=== PATIENT | male | born 1980 | race Two or more races ===

== ENCOUNTER 2020-10-31 19:32 | Emergency (ER) | payer SELFPAY ==
[~2020-10-31] VITALS: Ht 170.2 cm; Wt 103.4 kg
[2020-10-31] MEDS ORDERED: ONDANSETRON HCL 4 MG/2 ML VIAL IV ONE ×2 (19:45→20:30)
[2020-10-31] MEDS ORDERED: HYDROmorphone HCL 2 MG/ML VL IV ONE (19:45)
[2020-10-31] MEDS ORDERED: LIDOCAINE 2%HCL (LOCAL ANESTH.) INJ 10ml MDV IJ ONE (20:00)
[2020-10-31] MEDS ORDERED: BUPIVACAINE 0.5% P/F INJ 10 ML VIAL ONE (20:03)
[2020-10-31] MEDS ORDERED: LIDOCAINE 2% (LOCAL ANESTH.) PF 5ml SDV ONE (20:06)
[2020-10-31 20:20] VITALS: BP 121/81
[2020-10-31] MEDS ORDERED: TETANUS-DIPTH-ACEL PERTUSSIS 0.5ML SYR Tdap IM ONE (21:45)
[2020-10-31] MEDS ORDERED: ceFAZolin 1GM/50ML 100 ML IV ONE (21:45)
== END 2020-10-31 22:41 | disposition home or self-care (01) ==
LOC: ER 19:32 → EDBD 19:32 → ER 22:41
DX: S62.521A Displaced fracture of distal phalanx of right thumb, initial encounter for closed fracture (principal); X58.XXXA Exposure to other specified factors, initial encounter; Y93.89 Activity, other specified; Y92.89 Other specified places as the place of occurrence of the external cause; Y99.8 Other external cause status
CPT/HCPCS: 11730; 73140; 90471; 90715; 96365; 96375; 99284; J0690; J1170; J2001; J2405; J3490

== ENCOUNTER 2024-06-07 21:37 | Emergency (ER) | payer MEDICAID ==
[~2024-06-07] VITALS: Ht 170.2 cm; Wt 94.2 kg
--- NOTE | 2024-06-07 21:58 | ED.PDOC ---
Foreign Body HPI Comments 43-year-old male who came to ER for foreign body. Patient is working earlier, when a wooden splinter got lodged between the 1st and 2nd digit of the right hand accidentally. Minimal bleeding noted. Chief Complaint: Foreign Body Time Seen by MD: 21:57 Primary Care Provider: NONE History of Present Illness: Nurses Notes Allergies: Coded Allergies: NO KNOWN ALLERGIES (Unverified , 10/31/20) Information Source: Patient Mode of Arrival: Ambulatory Timing: Hours Duration: Since onset Severity: Mild Ability to handle secretions: Normal Prehospital treatment: None Location: Right (Right hand in the webspace between 1st and 2nd digit), Other Context: Accidental Foreign Body: Wood Removal: Was attempted Associated signs and symptoms: Pain, Bleeding Past Medical History PAST MEDICAL HISTORY: Denies Surgical History: Denies all surgeries Family History Family History: Reviewed,noncontributory to illness Social History Smoker: Non-Smoker Alcohol: Denies ETOH Use Drugs: Denies Drug Use Lives In: Home Constitutional: denies: chills, diaphoresis, fatigue, fever, malaise, sweats, weakness, others EENTM: denies: blurred vision, double vision, ear bleeding, ear discharge, ear drainage, ear pain, ear ringing, eye pain, eye redness, hearing loss, mouth pain, mouth swelling, nasal discharge, nose bleeding, nose congestion, nose pain, photophobia, tearing, throat pain, throat swelling, voice changes, others Respiratory: denies: cough, hemoptysis, orthopnea, SOB at rest, shortness of breath, SOB with excertion, stridor, wheezing, others Cardiovascular: denies: chest pain, dizzy spells, diaphoresis, Dyspnea on exertion, edema, irregular heart beat, left arm pain, lightheadedness, palpi tations, PND, syncope, others Gastrointestinal: denies: abdomen distended, abdominal pain, blood streaked bowels, constipated, diarrhea, dysphagia, difficulty swallowing, hematemesis, melena, nausea, poor appetite, poor fluid intake, rectal bleeding, rectal pain, vomiting, others Genitourinary: denies: burning, dysuria, flank pain, frequency, hematuria, incontinence, penile discharge, penile sore, pain, testicle pain, testicle swelling, urgency, others Neurological: denies: dizziness, fainting, headache, left sided numbness, left sided weakness, numbness, paresthesia, pre-existing deficit, right sided numbness, right sided weakness, seizure, speech problems, tingling, tremors, weakness, others Musculoskeletal: reports: others (Wooden splinter right hand); denies: back pain, gout, joint pain, joint swelling, muscle pain, muscle stiffness, neck pain Integumetry: denies: bruises, change in color, change in hair/nails, dryness, laceration, lesions, lumps, rash, wounds, others Allergic/Immunocompromised: denies: Difficulty Healing, Frequent Infections, Hives, Itching, others Physical Exam General Appearance: No Apparent Distress, Normal HEENT: Normal ENT Inspection, Pharynx Normal, TMs Normal Neck: Full Range of Motion, Non-Tender, Normal, Normal Inspection Respiratory: Chest Non-Tender, Lungs Clear, No Accessory Muscle Use, No Respiratory Distress, Normal Breath Sounds Cardiovascular: No Edema, No JVD, No Murmur, No Gallop, Normal Peripheral Pulses, Regular Rate/Rhythm Breast Exam: Deferred Gastrointestinal: No Organomegaly, Non Tender, No Pulsatile Mass, Normal Bowel Sounds, Soft Genitalia: Deferred Pelvic: Deferred Rectal: Deferred Extremities: No calf tenderness, Normal capillary refill, Normal range of motion, Non-tender, No pedal edema, Other (Wooden splinter seen at the webspace between the 1st and 2nd digit of the right hand) Musculoskeletal : Apperance: Normal Neurologic: Alert, electrician manager II-XII nml as Tested, No Motor Deficits, Normal Affect, Normal Mood, No Sensory Deficits Cerebellar Function: Normal Reflexes: Normal Skin: Dry, Normal Color, Warm Lymphatic: No Adenopathy Was a procedure done? Was a procedure done?: Yes Sedation Sedation?: No Foreign Body Removal Foreign body in: Skin Anesthetic: Lidocaine Prep: Saline, Betadine Procedure: Incised, Identified (Wooden splinter), Removed Informed consent obtained: Yes Risks/benefits/alt described: Yes FB Differential Dx Differential Diagnosis: Foreign Body, Laceration X-Ray, Labs, Meds, VS Vital Signs Date Time Temp Pulse Resp B/P (MAP) Pulse Ox O2 Delivery O2 Flow Rate FiO2 06/07/24 21:37 97.7 74 18 137/95 (109) 98 Current Medications Medications (Trade) Dose Ordered Sig/Daniel Route Start Time Stop Time Status Last Admin Bacitracin 2 applic ONCE ONCE TOP 06/07/24 22:15 06/07/24 22:16 DC 06/07/24 22:16 Time of 1ST Reevaluation: 21:53 Reevaluation 1ST: Unchanged Patient Education/Counseling: Diagnosis, Treatment Family Education/Counseling: No Family Present Departure 1 Departure Time of Disposition: 22:26 (Patient had the wooden splinter removed by me. Patient tolerated the procedure well without any complications. We will discharge patient home with outpatient follow up) Impression: Primary Impression: Foreign body of hand, right Qualified Codes: S60.551A - Superficial foreign body of right hand, initial encounter Disposition: HOME / SELF CARE / HOMELESS Condition: Stable Additional Instructions: You had a splinter removed in the ER today. In order to allow for the best healing, you should do the following. 1. Wash the area with gentle soap such as Dove brand and water. 2. Cover the cut with bacitracin 3. Bandage the cut and keep it covered. You should do the above twice per day. For pain you can take the followinam: Ibuprofen 400mg with food Noon: Acetaminophen 1000mg 4pm: Ibuprofen 400mg with food 8pm: Acetaminophen 1000mg If your symptoms worsen or you have any other concerns then please return to the ER. Discharged With: Self Critical Care Note Critical Care Time?: No Stability Stability form required: No Heart Score Heart Score: Heart Score Response (Comments) Value History N/A 0 EKG N/A 0 Age N/A 0 Risk Factors N/A 0 Troponin N/A 0 Total 0 I personally scribed for TWAN THIBODEAUX MD ([email or web address]) on 06/07/24 at 21:58. Electronically submitted by Silvio Guy ([email or web address]). TWAN THIBODEAUX MD Jun 07, 2024 21:58
[2024-06-07 22:05] VITALS: BP 137/78; PULSE 78; RESP 18; TEMP 98.2; O2SAT 98
[2024-06-07] MEDS: BACITRACIN TOP OINT 1 UD PKG TOP ONE ×2 (22:16)
== END 2024-06-07 22:19 | disposition home or self-care (01) ==
LOC: ER 21:37
DX: S60.450A Superficial foreign body of right index finger, initial encounter (principal); S60.351A Superficial foreign body of right thumb, initial encounter; W22.8XXA Striking against or struck by other objects, initial encounter; Y93.89 Activity, other specified; Y92.89 Other specified places as the place of occurrence of the external cause; Y99.8 Other external cause status
CPT/HCPCS: 10120

== ENCOUNTER 2024-08-05 06:13 | Emergency (ER) | payer SELFPAY ==
[~2024-08-05] VITALS: Ht 170.2 cm; Wt 93.3 kg
[2024-08-05 07:56] VITALS: PULSE 110; RESP 20; O2SAT 99
--- NOTE | 2024-08-05 08:13 | ED.PDOC ---
History of Present Illness HPI Comments 43-year-old male presents with a chief complaint of palpitations x onset 0300 with associated anxiety. Patient states that he woke up from his sleep at 0300 in the morning with palpitations. Patient reports that he then took his BP at home and it was 180 systolic, which subsequently gave him "an anxiety attack". Patient reports that since then he has been having intermittent palpitations with anxiety as well. Patient denies any chest pain or active pain in general, currently 0/10. Patients EKG shows sinus tachycardia at 104. Patient reports that he has a past medical history of diabetes, he was prescribed metformin however he does not take it. He has not seen his primary care provider in over 1 year. Chief Complaint: Palpitations Time Seen by MD: 07:56 Primary Care Provider: NONE Reviewed Notes: Medications, Allergies Allergies: Coded Allergies: NO KNOWN ALLERGIES (Unverified , 10/31/20) Information Source: Patient Mode of Arrival: Ambulatory Severity: Moderate Timing: Hours Duration: Since onset Prehospital treatment: None Vital Signs Vital Signs Date Time Temp Pulse Resp B/P (MAP) Pulse Ox O2 Delivery O2 Flow Rate FiO2 08/05/24 08:13 104 08/05/24 07:56 20 99 Room Air* 0 21 08/05/24 07:55 98.4 134/97 (109) 98.4 Physical Exam General: Awake, alert and oriented. No acute distress. Skin: Skin in warm, dry and intact. Appropriate color for ethnicity. Nailbeds pink with no cyanosis. HEENT: The head is normocephalic and atraumatic. Conjunctivae are clear without exudates or hemorrhage. Sclera is non-icteric. EOM are intact. No signs of nystagmus. Eyelids are normal in appearance without swelling or lesions. Oral mucosa is pink and moist Neck: The neck is supple with normal range of motion. No JVD. Cardiac: Heart rate 90 beats per minute. No murmurs, gallops, or rubs are auscultated. Respiratory: No signs of respiratory distress. Lung sounds are clear in all lobes bilaterally without rales, ronchi, or wheezes. Abdominal: Abdomen is soft, non-tender without distention. Bowel sounds are present and normoactive in all four quadrants. Extremities: Upper and lower extremities are atraumatic in appearance without deformity or edema. Neurological: The patient is awake, alert and oriented to person, place, and time with normal speech. Speech is clear. There is no facial asymmetry. Psychiatric: Appropriate mood and affect. Good judgement and insight. No visual or auditory hallucinations. Review of Systems: REVIEW OF SYSTEMS: No fever, no chills, or fatigue HEENT: No sore throat, no earache, no congestion, no neck pain. Cardiac: No chest pain. Positive palpitations. Lungs: No shortness of breath, no cough. GI: No nausea, no vomiting, no diarrhea, no constipation, no abdominal pain : No dysuria, frequency, or urgency. No hematuria. Musculoskeletal: No joint pain , no joint swelling, no extremity edema. Skin: No rash, no itching. Neuro: No headache, no dizziness, no weakness Psych: Positive anxiety Past Medical History PAST MEDICAL HISTORY: Anxiety, DM Surgical History: Denies all surgeries Family History Family History: Reviewed,noncontributory to illness Social History Smoker: Non-Smoker Alcohol: Denies ETOH Use Drugs: Denies Drug Use Lives In: Home Was a procedure done? Was a procedure done?: No EKG EKG : Pulse Rate (adult): 104 [place]: Normal Cardiac Rhythm: ST Block: None Hypertrophy: None ST: Normal Comments Independent interpretation sinus rhythm, tachycardia, no STEMI Differential Dx Considerations may include: Differential diagnosis includes thyroid disorder, cardiac arrhythmia, pulmonary embolism, myocardial infarction, hypovolemia, electrolyte imbalance, anemia, anxiety, other X-Ray, Labs, Meds, VS Vital Signs Date Time Temp Pulse Resp B/P (MAP) Pulse Ox O2 Delivery O2 Flow Rate FiO2 08/05/24 08:13 104 08/05/24 07:56 110 20 99 Room Air* 0 21 08/05/24 07:55 98.4 110 20 134/97 (109) 99 98.4 08/05/24 07:18 104 08/05/24 06:18 104 08/05/24 06:16 98.3 104 18 150/96 (114) 99 Lab Test 08/05/24 07:24 08/05/24 07:00 08/05/24 06:24 Range/Units Sodium Level 136 136-145 mmol/L Potassium Level 3.6 3.5-5.1 mmol/L Chloride Level 103 98-107 mmol/L Carbon Dioxide Level 26 20-31 mmol/L Anion Gap 7 5-15 Blood Urea Nitrogen 14 9-23 mg/dL Creatinine 0.91 0.700-1.30 mg/dL Glomerular Filtration Rate Calc 107 >90 mL/min BUN/Creatinine Ratio 15.4 10.0-20.0 Serum Glucose 325 H 74-106 mg/dL Calcium Level 10.4 8.7-10.4 mg/dL Total Bilirubin 0.4 0.2-1.0 mg/dL Aspartate Amino Transferase (AST) 14 13-40 U/L Alanine Aminotransferase (ALT) 34 7-40 U/L Alkaline Phosphatase 111 46-116 U/L Total Protein 7.2 5.7-8.2 g/dL Albumin 4.6 3.2-4.8 g/dL Thyroid Stimulating Hormone (TSH) Pending Troponin I High Sensitivity Pending < 3 L </=54 ng/L White Blood Count 7.4 4.4-10.8 10^3/uL Red Blood Count 5.84 4.5-5.90 10^6/uL Hemoglobin 16.5 13.5-17.5 g/dL Hematocrit 48.9 41.0-53.0 % Mean Corpuscular Volume 83.7 80.0-100.0 fL Mean Corpuscular Hemoglobin 28.3 28.0-32.0 pg Mean Corpuscular Hemoglobin Concent 33.8 32.0-36.0 g/dL Red Cell Distribution Width 13.2 11.8-14.3 % Platelet Count 183 140-450 10^3/uL Mean Platelet Volume 8.4 6.9-10.8 fL Neutrophils (%) (Auto) 50.2 37.0-80.0 % Lymphocytes (%) (Auto) 40.2 10.0-50.0 % Monocytes (%) (Auto) 8.6 0.0-12.0 % Eosinophils (%) (Auto) 0.8 0.0-7.0 % Basophils (%) (Auto) 0.2 0.0-2.0 % Neutrophils # (Auto) 3.7 1.6-8.6 10 ^3/uL Lymphocytes # (Auto) 3.0 0.4-5.4 10 ^3/uL Monocytes # (Auto) 0.6 0-1.3 10 ^3/uL Eosinophils # (Auto) 0.1 0-0.8 10 ^3/uL Basophils # (Auto) 0 0-0.2 10 ^3/uL Nucleated Red Blood Cells 0.1 % Current Medications Medications (Trade) Dose Ordered Sig/Daniel Route Start Time Stop Time Status Last Admin Hydroxyzine Pamoate (Vistaril Oral) 50 mg ONCE ONCE PO 08/05/24 08:15 08/05/24 08:16 DC 08/05/24 08:26 Time of 1ST Reevaluation: 08:26 Reevaluation 1ST: Unchanged Patient Education/Counseling: Diagnosis, Treatment, Prognosis Family Education/Counseling: No Family Present Departure 1 Departure Time of Disposition: 08:37 Impression: Primary Impression: Palpitations Additional Impressions: Sinus tachycardia Anxiety Hyperglycemia Disposition: 01 HOME / SELF CARE / HOMELESS Condition: Stable Additional Instructions: INSTRUCCIONES DE MARY DE Urgencias Instrucciones: Leticia atentamente todas las instrucciones proporcionadas en giovanni paquete. Aunque le hayan dado el mary del Departamento de Emergencias, esto no significa que tenga un "certificado de buena patric". [place]oy no se aragon realizado ningn diagnstico definitivo para svitlana sntomas. Es posible que ests en proceso de desarrollar eb enfermedad grave. Es por eso que debe regresar al servicio de urgencias sin falta si presenta algn sntoma nuevo o que empeora (especialmente si svitlana sntomas incluyen dolor en el pecho, dificultad para respirar, dolor abdominal, fiebre, dolor de betty, confusin, dificultad para kira o caminar). Tambin es muy importante que consulte a un mdico de atencin primaria dentro de los prximos 3 a 5 geronimo para realizar un seguimiento. Si no puede conseguir eb patrice, regrese al servicio de urgencias para eb nueva evaluacin. Es muy importante que se comunique con patel proveedor de atencin primaria y lo siga peridicamente para realizar ms investigaciones de svitlana sntomas, as brian para recibir atencin mdica de rutina. [place] no se aragon encontrado ningn diagnstico final de svitlana sntomas en el servicio de urgencias. Patel nivel de azcar en la sukumar est alto hoy. Es [address] [place] metformina segn lo recetado. Si no puede tolerar la metformina, consulte con patel proveedor de atencin primaria para conocer otras opciones de tratamiento para patel diabetes. La diabetes no tratada a jayden plazo puede tener consecuencias graves a jayden plazo, brian enfermedades cardacas, prdida de visin, prdida de extremidades y prdida de sensibilidad. Frecuencia cardaca rpida Tabla de contenido Frecuencia cardaca rpida Descripcin general La frecuencia cardaca normal de un adulto [place] es de entre 60 y 100 latidos por minuto. Eb frecuencia cardaca de ms de 100 latidos por minuto (taquicardia) puede ser causada por: Ejercicio o estrs. Esta frecuencia cardaca rpida suele volver a la normalidad (entre 60 y 100 latidos por minuto) con el descanso y la relajacin. Enfermedades que causan fiebre. Cuando desaparece la causa de la fiebre, la frecuencia cardaca suele volver a la normalidad. Deshidratacin. Cuando se trata la deshidratacin, la frecuencia cardaca suele volver a la normalidad. Efectos secundarios de los medicamentos. [place] incluye algunos medicamentos para el asma. Fumar, beber alcohol, yovany cafena u otros estimulantes, brian las pastillas para adelgazar. Cocana, anfetaminas y metanfetaminas. Los bebs y los nios menores de 2 aos tienen frecuencias cardacas ms altas porque patel metabolismo corporal es ms rpido. Las frecuencias cardacas disminuyen a medida que los nios crecen y, por lo general, en la adolescencia la frecuencia cardaca se encuentra en el mismo rango que la de un adulto. Eb frecuencia cardaca acelerada puede deberse a un problema de patric ms grave. Un problema cardaco u otras afecciones mdicas a veces pueden provocar eb frecuencia cardaca acelerada. Eb frecuencia cardaca acelerada puede causar palpitaciones, dolor o presin en el pecho, dificultad para respirar, mareos, aturdimiento o desmayos. Los problemas del ritmo cardaco que provocan eb frecuencia cardaca rpida incluyen la fibrilacin auricular y la taquicardia supraventricular (TSV). Si tiene eb enfermedad cardaca o insuficiencia cardaca, o si aragon tenido un ataque cardaco, asegrese de comprender la gravedad de un cambio en patel frecuencia o ritmo cardaco. Crditos por frecuencia cardaca rpida Actualizado al 2023 Autor: Personal de [employer] ([email or web address]) Junta de revisriya pratt ([email or web address]) Toda la educacin de [employer] es revisada por un equipo que incluye mdicos, enfermeras, profesionales avanzados, dietistas registrados y otros profesionales de la patric. Comments 43-year-old male who presents with tachycardia and symptoms which he states feel like anxiety. He denied any chest pain, dizziness or syncope Patient well-appearing, nontoxic. Advised prompt follow-up with PCP, return to the ED with any new, worsening or concerning symptoms. Patient is hyperglycemic without signs of DKA. Advised follow up with primary care provider for treatment of diabetes. Decision regarding hospitalization or escalation of hospital level of care: Risks and benefits of admission for further treatment of patient's condition was considered however due to patient's stable condition patient will be discharged to follow up closely or return to care for worsening of condition or inability to follow up. Critical Care Note Critical Care Time?: No Stability Stability form required: No Heart Score Heart Score: Heart Score Response (Comments) Value History N/A 0 EKG N/A 0 Age N/A 0 Risk Factors N/A 0 Troponin N/A 0 Total 0 I personally scribed for MARIANO FALL MD ([email or web address]) on 08/05/24 at 08:13. Electronically submitted by Mikie De Oliveira ([email or web address]). MARIANO FALL MD Aug 05, 2024 08:13
[2024-08-05 08:20] LABS: Basophils # (auto) 0 10 ^3/uL (0-0.2); Basophils % (auto) 0.2 % (0.0-2.0); Eosinophils # (auto) 0.1 10 ^3/uL (0-0.8); Eosinophils % (auto) 0.8 % (0.0-7.0); Hematocrit 48.9 % (41.0-53.0); Hemoglobin 16.5 g/dL (13.5-17.5); Lymphocytes % (auto) 40.2 % (10.0-50.0); Mean Corpuscular Hemoglobin 28.3 pg (28.0-32.0); Mean Corpuscular Hgb Conc. 33.8 g/dL (32.0-36.0); Mean Corpuscular Volume 83.7 fL (80.0-100.0); Monocytes # (auto) 0.6 10 ^3/uL (0-1.3); Monocytes % (auto) 8.6 % (0.0-12.0); Neutrophils # (auto) 3.7 10 ^3/uL (1.6-8.6); Neutrophils % (auto) 50.2 % (37.0-80.0); Nucleated Red Blood Cells % 0.1 %; Platelet Count (auto) 183 10^3/uL (140-450); Red Blood Cells 5.84 10^6/uL (4.5-5.90); Red Cell Distribution Width 13.2 % (11.8-14.3); White Blood Cell 7.4 10^3/uL (4.4-10.8)
[2024-08-05] MEDS: hydrOXYzine 25 MG TAB or CAP PO ONE (08:26)
[2024-08-05 08:31] LABS: Alanine Aminotransferase 34 U/L (7-40); Albumin 4.6 g/dL (3.2-4.8); Alkaline Phosphatase 111 U/L (46-116); Anion Gap 7 (5-15); Aspartate Aminotransferase 14 U/L (13-40); BUN/Creatinine Ratio 15.4 (10.0-20.0); Bilirubin, Total 0.4 mg/dL (0.2-1.0); Blood Urea Nitrogen 14 mg/dL (9-23); Carbon Dioxide 26 mmol/L (20-31); Chloride 103 mmol/L (98-107); Potassium 3.6 mmol/L (3.5-5.1); Sodium 136 mmol/L (136-145); Total Protein 7.2 g/dL (5.7-8.2)
[2024-08-05 08:32] LABS: Calcium 10.4 mg/dL (8.7-10.4); Glucose 325 mg/dL (74-106)
[2024-08-05] MEDS: POTASSIUM CHL 20 Meq TABLET PO ONE (09:00)
[2024-08-05] MEDS: InsuLIN REG 1unit/0.01ml Soln (100units/ml) SC ONE (09:03)
--- NOTE | 2024-08-05 09:08 | ECG ---
[facility] Test Date: 2024-08-05 Test Time: 09:06:59 Pat Name: ERINN MERIDA Department: ER Room: Gender: M Turn Operator: DAVID : 1980 Requested By: MARIANO FALL Order Number: [id number] Reading MD: Measurements Intervals [place] Rate: 92 P: 49 [place]: 178 QRS: 42 QRSD: 94 T: 7 QT: 345 QTc: 427 Interpretive Statements Sinus rhythm Please click the below link to view image of tracing.
[2024-08-05 09:14] VITALS: BP 131/87; PULSE 94; RESP 18; TEMP 98.4; O2SAT 99
[2024-08-05] MEDS ORDERED: METF-370 PO (09:15)
--- NOTE | 2024-08-05 10:27 | ECG ---
[facility] Test Date: 2024-08-05 Test Time: 07:18:12 Pat Name: ERINN MERIDA Department: ER Room: Gender: M Geoscience Technician: DAVID : 1980 Requested By: MARIANO FALL Order Number: [id number] Reading MD: Measurements Intervals [place] Rate: 104 P: 53 [place]: 188 QRS: 31 QRSD: 94 T: 18 QT: 345 QTc: 454 Interpretive Statements Sinus tachycardia Please click the below link to view image of tracing.
--- NOTE | 2024-08-05 10:27 | ECG ---
[facility] Test Date: 2024-08-05 Test Time: 06:18:20 Pat Name: ERINN MERIDA Department: ER Room: Gender: M Assembler Lay Ups: : 1980 Requested By: MARIANO FALL Order Number: [id number] Reading MD: Measurements Intervals [place] Rate: 104 P: 55 [place]: 188 QRS: 44 QRSD: 97 T: 27 QT: 349 QTc: 459 Interpretive Statements Sinus tachycardia Please click the below link to view image of tracing.
== END 2024-08-05 09:21 | disposition home or self-care (01) ==
LOC: ER 06:13
DX: R00.2 Palpitations (principal); R00.0 Tachycardia, unspecified; F41.9 Anxiety disorder, unspecified; E11.65 Type 2 diabetes mellitus with hyperglycemia
CPT/HCPCS: 36415; 80053; 82962; 84443; 84484; 85025; 93005; 96372; 99285; J1815

== ENCOUNTER 2024-12-13 22:54 | Emergency (ER) | payer SELFPAY ==
[~2024-12-13] VITALS: Ht 167.6 cm; Wt 92.1 kg
[~2024-12-13 22:54] MED LIST: METF-370 PO
[2024-12-13 23:49] VITALS: TEMP 98.9
--- NOTE | 2024-12-14 00:08 | ED.PDOC ---
History of Present Illness HPI Comments 44-year-old male who came to ER for hyperglycemia. Patient has history of type 2 diabetes. Noted that his blood sugar was elevated earlier at 564, so he became very anxious and dizzy. Patient states he has been having flu like symptoms the past few days and he has been taking cough medications and Tylenol for it. Chief Complaint: Hyperglycemia Time Seen by MD: 00:06 Primary Care Provider: NONE Reviewed Notes: Nurses Notes Allergies: Coded Allergies: NO KNOWN ALLERGIES (Unverified , 10/31/20) Home Meds Active Scripts Metformin Hydrochloride (METFORMIN HCL ER) 1,000 Mg Tab, 1 TAB PO DAILY, #90 TAB 3 Refills Prov:ZABRINA CRAFT MD 12/14/24 Metformin Hydrochloride (Metformin Hcl) 500 Mg Tab, 500 MG PO DAILY for 15 Days, #15 TAB Prov:MARIANO FALL MD 08/05/24 Information Source: Patient Mode of Arrival: Ambulatory Severity: Moderate Timing: Hours Duration: Since onset Past Medical History PAST MEDICAL HISTORY: Anxiety, DM Surgical History: Denies all surgeries Family History Family History: Reviewed,noncontributory to illness Social History Smoker: Non-Smoker Alcohol: Denies ETOH Use Drugs: Denies Drug Use Lives In: Home Constitutional: denies: chills, diaphoresis, fatigue, fever, malaise, sweats, weakness, others EENTM: denies: blurred vision, double vision, ear bleeding, ear discharge, ear drainage, ear pain, ear ringing, eye pain, eye redness, hearing loss, mouth pain, mouth swelling, nasal discharge, nose bleeding, nose congestion, nose pain, photophobia, tearing, throat pain, throat swelling, voice changes, others Respiratory: denies: cough, hemoptysis, orthopnea, SOB at rest, shortness of breath, SOB with excertion, stridor, wheezing, others Cardiovascular: denies: chest pain, dizzy spells, diaphoresis, Dyspnea on exertion, edema, irregular heart beat, left arm pain, lightheadedness, palpitations, PND, syncope, others Gastrointestinal: denies: abdomen distended, abdominal pain, blood streaked bowels, constipated, diarrhea, dysphagia, difficulty swallowing, hematemesis, melena, nausea, poor appetite, poor fluid intake, rectal bleeding, rectal pain, vomiting, others Genitourinary: denies: burning, dysuria, flank pain, frequency, hematuria, incontinence, penile discharge, penile sore, pain, testicle pain, testicle swell ing, urgency, others Neurological: reports: dizziness; denies: fainting, headache, left sided numbness, left sided weakness, numbness, paresthesia, pre-existing deficit, right sided numbness, right sided weakness, seizure, speech problems, tingling, tremors, weakness, others Musculoskeletal: denies: back pain, gout, joint pain, joint swelling, muscle pain, muscle stiffness, neck pain, others Integumetry: denies: bruises, change in color, change in hair/nails, dryness, laceration, lesions, lumps, rash, wounds, others Allergic/Immunocompromised: denies: Difficulty Healing, Frequent Infections, Hives, Itching, others Hematologic/Lymphatic: denies: anemia, blood clots, easy bleeding, easy bruising, swollen glands, others Endocrine: denies: excessive hunger, excessive sweating, excessive thirst, excessive urination, flushing, intolerance to cold, intolerance to heat, unexplained weight gain, unexplained weight loss, others Psychiatric: reports: anxiety; denies: bipolar disorder, depression, hopeless, panic disorder, schizophrenia, sleepless, suicidal, others Physical Exam General Appearance: No Apparent Distress, Normal HEENT: Normal ENT Inspection, Pharynx Normal, TMs Normal Neck: Full Range of Motion, Non-Tender, Normal, Normal Inspection Respiratory: Chest Non-Tender, Lungs Clear, No Accessory Muscle Use, No Respiratory Distress, Normal Breath Sounds Cardiovascular: No Edema, No JVD, No Murmur, No Gallop, Normal Peripheral Pulses, Regular Rate/Rhythm Breast Exam: Deferred Gastrointestinal: No Organomegaly, Non Tender, No Pulsatile Mass, Normal Bowel Sounds, Soft Genitalia: Deferred Pelvic: Deferred Rectal: Deferred Extremities: No calf tenderness, Normal capillary refill, Normal inspection, Normal range of motion, Non-tender, No pedal edema Musculoskeletal : Apperance: Normal Neurologic: Alert, manager life II-XII nml as Tested, No Motor Deficits, Normal Affect, Normal Mood, No Sensory Deficits Cerebellar Function: Normal Reflexes: Normal Skin: Dry, Normal Color, Warm Lymphatic: No Adenopathy Was a procedure done? Was a procedure done?: No Differential Dx Considerations may include: Anemia, electrolyte imbalance, hyperglycemia, diabetic ketoacidosis, anxiety, UTI X-Ray, Labs, Meds, VS Vital Signs Date Time Temp Pulse Resp B/P (MAP) Pulse Ox O2 Delivery O2 Flow Rate FiO2 12/14/24 02:48 75 16 131/78 (95) 99 12/13/24 23:49 98.9 77 16 149/90 (109) 97 98.9 Lab Test 12/14/24 00:10 12/14/24 00:04 12/14/24 00:01 12/13/24 23:59 Range/Units White Blood Count 8.0 4.4-10.8 10^3/uL Red Blood Count 5.57 4.5-5.90 10^6/uL Hemoglobin 15.7 13.5-17.5 g/dL Hematocrit 46.1 41.0-53.0 % Mean Corpuscular Volume 82.8 80.0-100.0 fL Mean Corpuscular Hemoglobin 28.3 28.0-32.0 pg Mean Corpuscular Hemoglobin Concent 34.1 32.0-36.0 g/dL Red Cell Distribution Width 12.9 11.8-14.3 % Platelet Count 204 140-450 10^3/uL Mean Platelet Volume 8.4 6.9-10.8 fL Neutrophils (%) (Auto) 89.8 H 37.0-80.0 % Lymphocytes (%) (Auto) 7.5 L 10.0-50.0 % Monocytes (%) (Auto) 2.4 0.0-12.0 % Eosinophils (%) (Auto) 0.0 0.0-7.0 % Basophils (%) (Auto) 0.3 0.0-2.0 % Neutrophils # (Auto) 7.2 1.6-8.6 10 ^3/uL Lymphocytes # (Auto) 0.6 0.4-5.4 10 ^3/uL Monocytes # (Auto) 0.2 0-1.3 10 ^3/uL Eosinophils # (Auto) 0 0-0.8 10 ^3/uL Basophils # (Auto) 0 0-0.2 10 ^3/uL Nucleated Red Blood Cells 0.0 % Sodium Level 133 L 136-145 mmol/L Potassium Level 4.3 3.5-5.1 mmol/L Chloride Level 99 98-107 mmol/L Carbon Dioxide Level 22 20-31 mmol/L Anion Gap 12 5-15 Blood Urea Nitrogen 19 9-23 mg/dL Creatinine 1.04 0.700-1.30 mg/dL Glomerular Filtration Rate Calc 90 >90 mL/min BUN/Creatinine Ratio 18.3 10.0-20.0 Serum Glucose 570 *H 74-106 mg/dL Calcium Level 9.8 8.7-10.4 mg/dL Total Bilirubin 0.4 0.2-1.0 mg/dL Aspartate Amino Transferase (AST) 18 13-40 U/L Alanine Aminotransferase (ALT) 25 7-40 U/L Alkaline Phosphatase 125 H 46-116 U/L Total Protein 7.8 5.7-8.2 g/dL Albumin 5.0 H 3.2-4.8 g/dL Blood Gas Specimen Type Venous Blood Gas Sample Site Other Blood Gas Patient Temperature 37.0 Arterial Blood Date Drawn [id number] Julian Test N/a Venous Blood pH 7.421 7.320-7.430 Venous Blood pCO2 at Patient Temp 32.0 L 38.0-54.0 mmHg Venous Blood pO2 at Patient Temp < 36.5 23.0-48.0 mmHg Venous Blood HCO3 20.3 L 22.0-29.0 mmol/L Venous Blood Base Excess -3.0 L -2.0-3.0 mmol/L Blood Gas Modality Room air FiO2 % 21.0 Blood Gas Comments Vbg, po2 out of amr POC Glucose 551 *H 70-106 mg/dl Urine Color Colorless Yellow Urine Clarity Clear Clear Urine pH 5.5 5.0-9.0 Urine Specific [place] 1.025 1.001-1.035 Urine Protein Negative Negative Urine Ketones 1+ H Negative Urine Blood Negative Negative /uL Urine Nitrite Negative Negative Urine Bilirubin Negative Negative Urine Urobilinogen Normal Negative mg/dL Urine Leukocyte Esterase Negative Negative /uL Urine RBC None seen 0 - 3 /hpf Urine Microscopic WBC < 1 0-3 /HPF Urine Squamous Epithelial Cells None seen <5 /hpf Urine Bacteria None seen None Seen /hpf Urine Glucose 4+ H Normal mg/dL Test 12/13/24 23:50 Range/Units POC Glucose 526 *H 70-106 mg/dl Current Medications Medications (Trade) Dose Ordered Sig/Daniel Route Start Time Stop Time Status Last Admin Sodium Chloride 2,000 ml @ 1,000 mls/hr Q2H ONCE IV 12/14/24 00:00 12/14/24 01:59 DC 12/14/24 00:51 Insulin Human Regular (InsuLIN R) 8 units ONCE ONCE SC 12/14/24 00:00 12/14/24 00:02 DC 12/14/24 00:11 Time of 1ST Reevaluation: 00:03 Reevaluation 1ST: Unchanged Patient Education/Counseling: Diagnosis, Treatment Family Education/Counseling: No Family Present Departure 1 Departure Time of Disposition: 03:00 Impression: Primary Impression: Hyperglycemia Additional Impression: Type 2 diabetes mellitus Disposition: 01 HOME / SELF CARE / HOMELESS Condition: Stable e-Prescriptions Metformin Hydrochloride (METFORMIN HCL ER) 1,000 Mg Tab 1 TAB PO DAILY, #90 TAB 3 Refills Prov: ZABRINA CRAFT MD 12/14/24 Discharged With: Self Critical Care Note Critical Care Time?: Yes (35 min-critical care time only) Critical care comment: Hyperglycemia Stability Stability form required: No Heart Score Heart Score: Heart Score Response (Comments) Value History N/A 0 EKG N/A 0 Age N/A 0 Risk Factors N/A 0 Troponin N/A 0 Total 0 I personally scribed for ZABRINA CRAFT MD ([email or web address]) on 12/14/24 at 00:08. Electronically submitted by Silvio Guy ([facility]). ZABRINA CRAFT MD December 14, 2024 00:08
[2024-12-14] MEDS: InsuLIN REG 1unit/0.01ml Soln (100units/ml) SC ONE (00:11)
[2024-12-14 00:17] LABS: Urine Bacteria None Seen /hpf (None Seen)
[2024-12-14 00:31] LABS: Urine Blood Negative /uL (Negative); Urine Clarity Clear (Clear); Urine Color Colorless (Yellow); Urine Protein, UAD Negative (Negative); Urine Specific Gravity 1.025 (1.001-1.035); Urine Squamous Epithelial Cell None Seen /hpf (<5); Urine Urobilinogen Normal (Negative); Urine WBC < 1 /HPF (0-3); Urine pH 5.5 (5.0-9.0)
[2024-12-14 00:33] LABS: Basophils # (auto) 0 10 ^3/uL (0-0.2); Basophils % (auto) 0.3 % (0.0-2.0); Eosinophils # (auto) 0 10 ^3/uL (0-0.8); Hematocrit 46.1 % (41.0-53.0); Hemoglobin 15.7 g/dL (13.5-17.5); Lymphocytes # (auto) 0.6 10 ^3/uL (0.4-5.4); Lymphocytes % (auto) 7.5 % (10.0-50.0); Mean Corpuscular Hemoglobin 28.3 pg (28.0-32.0); Mean Corpuscular Hgb Conc. 34.1 g/dL (32.0-36.0); Mean Corpuscular Volume 82.8 fL (80.0-100.0); Monocytes # (auto) 0.2 10 ^3/uL (0-1.3); Monocytes % (auto) 2.4 % (0.0-12.0); Neutrophils # (auto) 7.2 10 ^3/uL (1.6-8.6); Neutrophils % (auto) 89.8 % (37.0-80.0); Platelet Count (auto) 204 10^3/uL (140-450); Red Blood Cells 5.57 10^6/uL (4.5-5.90); Red Cell Distribution Width 12.9 % (11.8-14.3)
[2024-12-14 00:40] LABS: Alanine Aminotransferase 25 U/L (7-40); Alkaline Phosphatase 125 U/L (46-116); Anion Gap 12 (5-15); Aspartate Aminotransferase 18 U/L (13-40); BUN/Creatinine Ratio 18.3 (10.0-20.0); Bilirubin, Total 0.4 mg/dL (0.2-1.0); Blood Urea Nitrogen 19 mg/dL (9-23); Calcium 9.8 mg/dL (8.7-10.4); Carbon Dioxide 22 mmol/L (20-31); Chloride 99 mmol/L (98-107); Potassium 4.3 mmol/L (3.5-5.1); Sodium 133 mmol/L (136-145); Total Protein 7.8 g/dL (5.7-8.2)
[2024-12-14 00:41] LABS: Glucose 570 mg/dL (74-106)
[2024-12-14] MEDS: SODIUM CHLORIDE 0.9% 2,000 ML IV ONE (00:51)
[2024-12-14] MEDS ORDERED: METF-490 PO (00:55)
[2024-12-14 02:48] VITALS: BP 131/78; PULSE 75; RESP 16; O2SAT 99
== END 2024-12-14 02:48 | disposition home or self-care (01) ==
LOC: ER 22:54
DX: E11.65 Type 2 diabetes mellitus with hyperglycemia (principal); F41.9 Anxiety disorder, unspecified; Z79.84 Long term (current) use of oral hypoglycemic drugs
CPT/HCPCS: 36415; 36600; 80053; 81001; 82805; 82947; 85025; 96360; 96361; 96372; 99283; J1815; J7030; 82962